=== PATIENT | female | born 1995 | race Caucasian/White ===

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

== ENCOUNTER → 2017-09-07 | Outpatient (REF) | payer BC | LOC: M LAB REF 13:14 | DX: R30.0 Dysuria (principal) | CPT/HCPCS: 87186 ==

== ENCOUNTER → 2018-09-17 | Outpatient (REF) | payer BC | LOC: M SFHCWAGY 15:51 | PROVIDERS: ATTEND Nurse Practitioner Women's Health | DX: Z12.4 Encounter for screening for malignant neoplasm of cervix (principal) ==

== ENCOUNTER → 2019-09-19 | Outpatient (REF) | payer BC | LOC: M SFHCWAGY 12:47 | PROVIDERS: ATTEND Nurse Practitioner Women's Health | DX: Z12.4 Encounter for screening for malignant neoplasm of cervix (principal) ==

== ENCOUNTER → 2020-02-01 | Outpatient (CLI) | payer SELFPAY | LOC: M LABSMTC 08:05 | PROVIDERS: ATTEND Pediatrics | DX: Z20.828 Contact with and (suspected) exposure to other viral communicable diseases (principal) ==

== ENCOUNTER → 2020-02-20 | Outpatient (CLI) | payer SELFPAY | LOC: M LABSMTC 09:36 | PROVIDERS: ATTEND Pediatrics | DX: Z20.822 Contact with and (suspected) exposure to COVID-19 (principal) ==

== ENCOUNTER → 2020-09-16 | Outpatient (REF) | payer BC ==
[2020-09-17 12:05] LABS: GC DNA AMPLIFICATION NEGATIVE (NEGATIVE)
== END ==
LOC: M SFHCWAGY 10:22
PROVIDERS: ATTEND Nurse Practitioner Women's Health
DX: Z11.3 Encounter for screening for infections with a predominantly sexual mode of transmission (principal); Z12.4 Encounter for screening for malignant neoplasm of cervix; Z77.9 Other contact with and (suspected) exposures hazardous to health
CPT/HCPCS: 87661; G0123

== ENCOUNTER → 2021-09-21 | Outpatient (REF) | payer BC | LOC: M PLALAB 14:07 | PROVIDERS: ATTEND Nurse Practitioner Family | DX: Z12.4 Encounter for screening for malignant neoplasm of cervix (principal) ==

== ENCOUNTER → 2022-07-26 | Outpatient (CLI) | payer BC ==
[2022-07-26 13:59] LABS: BASO % 0.4 % (0.0-1.0); EOS # 0.1 10^3/uL (0.0-0.5); EOS % 0.8 % (0.0-3.0); HEMATOCRIT 42.6 % (36.0-47.0); HEMOGLOBIN 14.2 g/dl (12.0-15.5); LYMPH # 2.6 10^3/uL (1.5-5.0); LYMPH % 26.9 % (24.0-44.0); MEAN CORPUSCULAR HEMOGLOBIN 30.2 pg (27.0-33.0); MEAN CORPUSCULAR HGB CONC 33.3 g/dl (32.0-36.5); MEAN CORPUSCULAR VOLUME 90.6 fl (80.0-96.0); MONO # 0.6 10^3/uL (0.0-0.8); MONO % 6.3 % (2.0-8.0); NEUTROPHILS # 6.2 10^3/uL (1.5-8.5); NEUTROPHILS % 64.6 % (36.0-66.0); PLATELET COUNT, AUTOMATED 277 10^3/uL (150-450); WHITE BLOOD COUNT 9.6 10^3/uL (4.0-10.0)
[2022-07-26 14:04] LABS: ALBUMIN 3.7 G/DL (3.2-5.2); ALKALINE PHOSPHATASE 33 U/L (46-116); ALT/SGPT 15 U/L (7.0-40); AST/SGOT < 8 U/L (<34); BILIRUBIN,TOTAL 0.3 MG/DL (0.3-1.2); BLOOD UREA NITROGEN 13 MG/DL (9-23); CARBON DIOXIDE LEVEL 28 MMOL/L (20-31); CHLORIDE LEVEL 106 MMOL/L (98-107); CREATININE FOR GFR 0.74 MG/DL (0.55-1.30); GLOMERULAR FILTRATION RATE > 60.0 (>60); GLUCOSE, FASTING 77 MG/DL (60-100); POTASSIUM SERUM 3.8 MMOL/L (3.5-5.1); PROLACTIN 4.69 NG/ML; SODIUM LEVEL 141 MMOL/L (136-145); THYROID STIMULATING HORMONE 1.858 uIU/ML (0.55-4.78); TOTAL PROTEIN 6.5 G/DL (5.7-8.2)
[2022-07-26 14:05] LABS: FREE T4 1.28 NG/DL (0.89-1.76)
[2022-07-30 15:07] LABS: 17 HYDROXY PROGESTERONE < 10 ng/dL (.); DEHYDROEPIANDROSTERONE SULFATE 61.7 ug/dL (84.8-378.0); TESTOSTERONE FREE (DIRECT) < 0.2 pg/mL (0.0-4.2); TESTOSTERONE TOTAL FOR T&D < 3.0 ng/dL (13-71)
== END ==
LOC: M PLALAB 11:24
PROVIDERS: ATTEND Nurse Practitioner Family
DX: N92.6 Irregular menstruation, unspecified (principal)

== ENCOUNTER → 2022-10-06 | Outpatient (REF) | payer BC | LOC: M SFHCWAGY 13:18 | PROVIDERS: ATTEND Nurse Practitioner Family | DX: Z12.4 Encounter for screening for malignant neoplasm of cervix (principal) | CPT/HCPCS: 87624; G0123 ==

== ENCOUNTER → 2024-08-11 | Outpatient (REF) | payer BC ==
[2024-08-13 15:15] LABS: HPV APTIMA Not Detected (Not Detected)
== END ==
LOC: M SFHCWAGY 13:01
PROVIDERS: ATTEND Nurse Practitioner Family
DX: Z12.4 Encounter for screening for malignant neoplasm of cervix (principal)
CPT/HCPCS: 87624; G0123